=== PATIENT | female | born 1960 | race Caucasian/White ===

== ENCOUNTER 2019-02-06 12:03 | Emergency (ER) | payer BC ==
[2019-02-06] MEDS ORDERED: Aspirin 81 MG Tab.Chew PO ONE (12:13)
[2019-02-06] MEDS ORDERED: Aspirin 81 MG Tab.Chew ONE (12:14)
[2019-02-06] MEDS ORDERED: Sodium Chloride 0.9% 10 ML Syringe FLUSH PRN (12:16)
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
[2019-02-06 12:54] LABS: ANION GAP 15.6 mmol/L (5-15); CHLORIDE,CL 103 mmol/L (98-115); SODIUM,NA 142 mmol/L (136-145)
[2019-02-06] MEDS ORDERED: ALPRAZolam 0.25 MG Tab PO ONE (13:02)
== END 2019-02-06 13:25 | disposition home or self-care (01) ==
LOC: KA.ED 12:03
DX: R20.2 Paresthesia of skin (principal); Z91.040 Latex allergy status; Z88.5 Allergy status to narcotic agent; Z91.013 Allergy to seafood; Z79.899 Other long term (current) drug therapy
CPT/HCPCS: 80048; 82550; 82553; 84484; 85025; 93005; 99285-25; A9270-GY

== ENCOUNTER 2023-09-10 11:54 | Day surgery (SDC) | payer OTHER ==
[2023-09-10] MEDS ORDERED: Sodium Chloride 0.9% 10 ML Syringe FLUSH PRN (12:00)
[2023-09-10 12:20] LABS: GLUCOSE,POC 92 mg/dL (70-140)
[2023-09-10] MEDS: Lactated Ringers 1,000 ML IV SCH (13:01)
[2023-09-10] MEDS ORDERED: Midazolam 1 MG/ML 2 ML SDV ONE (13:05)
[2023-09-10] MEDS ORDERED: Propofol 200 MG/20 ML SDV ONE (13:05)
[2023-09-10 14:47] VITALS: BP 132/86; PULSE 75
== END 2023-09-10 15:07 | disposition home or self-care (01) ==
LOC: KA.SDS 11:54
PROVIDERS: ATTEND Family Medicine
DX: Z12.11 Encounter for screening for malignant neoplasm of colon (principal); D12.6 Benign neoplasm of colon, unspecified; I47.10 Supraventricular tachycardia, unspecified; I10 Essential (primary) hypertension; F41.9 Anxiety disorder, unspecified; E66.9 Obesity, unspecified; Z68.38 Body mass index [BMI] 38.0-38.9, adult; E78.5 Hyperlipidemia, unspecified; Z79.899 Other long term (current) drug therapy; Z88.5 Allergy status to narcotic agent
CPT/HCPCS: 00812; 82947; J2250; J2704; J7120